=== PATIENT | male | born 1975 | race Caucasian/White ===

== ENCOUNTER 2021-11-19 07:42 | Emergency (ER) | payer MEDICARE, OTHER ==
[~2021-11-19 07:42] MED LIST: MECLIZINE HCL25 MG PO; NAPROSYN EC 50500 MG PO
[2021-11-19 08:44] LABS: HEMOGLOBIN 14.7 gm/dl (14.0-17.5); RED BLOOD COUNT 4.63 M/UL (4.20-5.50); WHITE BLOOD COUNT 7.9 K/UL (4.5-11.0)
[2021-11-19 09:18] LABS: BUN/CREATININE RATIO 34 (0-10)
== END 2021-11-19 14:05 | disposition home or self-care (01) ==
LOC: ER1 07:42
PROVIDERS: Emergency Medicine
DX: R07.2 Precordial pain (principal); R07.89 Other chest pain; E11.9 Type 2 diabetes mellitus without complications; E78.5 Hyperlipidemia, unspecified; I10 Essential (primary) hypertension; F17.210 Nicotine dependence, cigarettes, uncomplicated
CPT/HCPCS: 71045; 80053; 82550; 82553; 83874; 84484; 85025; 93005; 99285